=== PATIENT | female | born 1970 | race Caucasian/White ===

== ENCOUNTER 2020-07-13 15:51 | Outpatient (CLI) | payer OTHER, SELFPAY ==
--- NOTE | ~2020-07-13 | MM_ITS ---
EXAMINATION: MM screening [facility] BI w sugar HISTORY: Screening mammogram TECHNIQUE: Craniocaudal and mediolateral oblique 3-D tomosynthesis images were obtained and synthetic 2-D images were generated. CAD analysis was submitted and interpreted. COMPARISON: 05/23/2019, 05/21/2018, 05/14/2018, 05/17/1917 BREAST PARENCHYMAL COMPOSITION: The breasts are heterogeneously dense, which may obscure small masses . FINDINGS: There is no evidence of suspicious mass, calcification, or architectural distortion to sugg est malignancy in either breast. There has been no suspicious interval change. IMPRESSION: 1. No mammographic evidence of malignancy. 2. Recommend routine screening mammography in one year. BI-RADS Category 1: Negative Reviewed, dictated and finalized at location A. 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
== END 2020-07-13 15:52 | disposition home or self-care (01) ==
PROVIDERS: PCP Internal Medicine; Visit Provider Obstetrics & Gynecology
DX: Z12.31 Encounter for screening mammogram for malignant neoplasm of breast (principal)
CPT/HCPCS: 77063; 77067

== ENCOUNTER 2021-07-12 15:19 | Outpatient (CLI) | payer OTHER, SELFPAY ==
--- NOTE | ~2021-07-12 | MM_ITS ---
EXAMINATION: MM screening [facility] BI w sugar HISTORY: Screening mammogram TECHNIQUE: Craniocaudal and mediolateral oblique 3-D tomosynthesis images were obtained and synthetic 2-D images were generated. CAD analysis was submitted and interpreted. COMPARISON: 07/13/2020, 05/23/2019, 05/21/2018 BREAST PARENCHYMAL COMPOSITION: The breasts are heterogeneously dense, which may obscure small masses . FINDINGS: RIGHT BREAST: There is focal asymmetry in the posterior third of the upper inner breast 9 cm from the nipple. LEFT BREAST: There is no evidence of suspicious mass, calcification, or architectural distortion to s uggest malignancy. There has been no significant interval change. IMPRESSION: 1. Focal asymmetry of the right breast. 2. Additional mammographic views and possible breast ultrasound are recommended. BI-RADS Category 0: Incomplete: Needs additional imaging evaluation. Reviewed, dictated and finalized at location A. TRAINER TEACHER IMPRESSION: 1. Focal asymmetry of the right breast. 2. Additional mammographic views and possible breast ultrasound are recommended . BI-RADS Category 0: Incomplete: Needs additional imaging evaluation.
== END 2021-07-12 15:20 | disposition home or self-care (01) ==
LOC: ANHIMG 15:23
PROVIDERS: PCP Family Medicine; Visit Provider Obstetrics & Gynecology
DX: Z12.31 Encounter for screening mammogram for malignant neoplasm of breast (principal); R92.8 Other abnormal and inconclusive findings on diagnostic imaging of breast
CPT/HCPCS: 77063; 77067

== ENCOUNTER 2021-08-09 13:40 | Outpatient (CLI) | payer OTHER, SELFPAY ==
--- NOTE | ~2021-08-09 | MM_ITS ---
EXAMINATION: MM diagnostic [facility] RT w sugar HISTORY: Right breast asymmetry on screening mammogram TECHNIQUE: Additional 3-D tomosynthesis images of the right breast were performed and synthetic 2-D i mages were generated. CAD analysis was submitted and interpreted. COMPARISON: 07/12/2021, 07/13/2020, 05/23/2019 FINDINGS: There is a return to baseline fibroglandular appearance with spot compression of the right breast in the area questioned on screening mammogram. IMPRESSION: 1. No mammographic evidence of malignancy. 2. Recommend routine screening mammography in one year. BI-RADS Category 1: Negative Reviewed, dictated and finalized at location A. 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
== END 2021-08-09 13:41 | disposition home or self-care (01) ==
LOC: ANHIMG 13:41
PROVIDERS: PCP Family Medicine; Visit Provider Obstetrics & Gynecology
DX: R92.8 Other abnormal and inconclusive findings on diagnostic imaging of breast (principal)
CPT/HCPCS: 77061; 77065; G0279

== ENCOUNTER 2022-10-10 16:00 | Outpatient (CLI) | payer OTHER, SELFPAY ==
--- NOTE | ~2022-10-10 | MM_ITS ---
EXAMINATION: MM screening [facility] BI w sugar HISTORY: Screening mammogram TECHNIQUE: Craniocaudal and mediolateral oblique 3-D tomosynthesis images were obtained and synthetic 2-D images were generated. CAD analysis was submitted and interpreted. COMPARISON: 08/27/2021 diagnostic right mammogram 07/12/2021, 07/13/2020 bilateral screening mammogram examinations BREAST PARENCHYMAL COMPOSITION: There are scattered areas of fibroglandular density. FINDINGS: There is no evidence of suspicious mass, calcification, or architectural distortion to sugg est malignancy in either breast. There has been no suspicious interval change. IMPRESSION: 1. No mammographic evidence of malignancy. 2. Recommend routine screening mammography in one year. BI-RADS Category 1: Negative Reviewed, dictated and finalized at location A. CLEANER
== END 2022-10-10 16:01 | disposition home or self-care (01) ==
PROVIDERS: PCP Family Medicine; Visit Provider Obstetrics & Gynecology
DX: Z12.31 Encounter for screening mammogram for malignant neoplasm of breast (principal)
CPT/HCPCS: 77063; 77067

== ENCOUNTER 2023-11-01 14:43 | Outpatient (CLI) | payer OTHER, SELFPAY ==
--- NOTE | ~2023-11-01 | MM_ITS ---
EXAMINATION: MM screening [facility] BI w sugar HISTORY: Screening mammogram TECHNIQUE: Craniocaudal and mediolateral oblique 3-D tomosynthesis images were obtained and synthetic 2-D images were generated. CAD analysis was submitted and interpreted. COMPARISON: October 10, 2022 bilateral screening mammogram August 09, 2021 diagnostic right mammogram July 12, 2021 bilateral screening mammogram August 22, 2019 bilateral screening mammogram 05/14/2018, 05/26/2017 bilateral screening mammogram examinations BREAST PARENCHYMAL COMPOSITION: The breasts are heterogeneously dense, which may obscure small masses . FINDINGS: There is focal irregular asymmetry in the posterior inner right breast. Diagnostic right ma mmogram and right breast ultrasound examination are recommended. Otherwise no suspicious mass, architectural distortion, malignant calcification, skin thickening or r etraction of either breast is detected. IMPRESSION: 1. Focal irregular asymmetry in posterior inner right breast 2. Diagnostic right mammogram and right breast ultrasound examination are recommended. BI-RADS Category 0: Incomplete: Needs additional imaging evaluation. Reviewed, dictated and finalized at location A. INSULATOR IMPRESSION: 1. Focal irregular asymmetry in posterior inner right breast 2. Diagnostic right mammogram and right breast ultrasound examination are recom mended. BI-RADS Category 0: Incomplete: Needs additional imaging evaluation.
== END 2023-11-01 14:44 | disposition home or self-care (01) ==
LOC: ANHIMG 14:47
PROVIDERS: PCP Family Medicine; Visit Provider Obstetrics & Gynecology
DX: Z12.31 Encounter for screening mammogram for malignant neoplasm of breast (principal); R92.8 Other abnormal and inconclusive findings on diagnostic imaging of breast
CPT/HCPCS: 77063; 77067

== ENCOUNTER 2023-11-20 13:24 | Outpatient (CLI) | payer OTHER, SELFPAY ==
--- NOTE | ~2023-11-20 | MMUS_ITS ---
EXAMINATION: MM diagnostic [facility] RT w sugar, US breast RT complete HISTORY: Right mammographic asymmetry reported on 11/01/2023 screening mammogram TECHNIQUE: Additional 3-D tomosynthesis images of the right breast were performed and synthetic 2-D i mages were generated. CAD analysis was submitted and interpreted. High resolution complete right mitch st ultrasound examination coronal 4 quadrants and subareolar area was performed. COMPARISON: Serial mammogram examinations dating back to 05/26/2017 BREAST PARENCHYMAL COMPOSITION: There are scattered areas of fibroglandular density. FINDINGS: MAMMOGRAPHIC FINDINGS: Focal irregular density is again noted in the posterior inner right breast on craniocaudal view, appe aring stable compared to 05/26/2017. ULTRASOUND: No suspicious mass or shadowing is evident. IMPRESSION: 1. Probable benign fibroglandular asymmetry 2. 6 month follow-up diagnostic right mammogram is recommended, with ultrasound if required BI-RADS category 3, probably benign findings. Reviewed, dictated and finalized at location A. IMPRESSION: 1. Probable benign fibroglandular asymmetry 2. 6 month follow-up diagnostic right mammogram is recommended, with ultrasound if required BI-RADS category 3, probably benign findings.
== END 2023-11-20 13:25 | disposition home or self-care (01) ==
LOC: ANHIMG 13:25
PROVIDERS: PCP Family Medicine; Visit Provider Obstetrics & Gynecology
DX: R92.8 Other abnormal and inconclusive findings on diagnostic imaging of breast (principal)
CPT/HCPCS: 76641; 77061; 77065; G0279

== ENCOUNTER 2024-06-05 13:00 | Outpatient (CLI) | payer OTHER, SELFPAY ==
--- NOTE | ~2024-06-05 | MMUS_ITS ---
EXAMINATION: MM diagnostic [facility] RT w sugar, US breast RT complete HISTORY: Follow-up right breast asymmetries TECHNIQUE: Additional 3-D tomosynthesis images of the right breast were performed and synthetic 2-D i mages were generated. CAD analysis was submitted and interpreted. High resolution complete right mitch st ultrasound was performed. COMPARISON: Comparison to multiple prior studies sequentially, with oldest reviewed study dated 06/28. BREAST PARENCHYMAL COMPOSITION: Not dense: There are scattered areas of fibroglandular density. FINDINGS: MAMMOGRAPHIC FINDINGS: Right breast asymmetries are not significantly changed from prior examinations allowing for differenc es of technique. There are no suspicious calcifications. ULTRASOUND: Complete US of all 4 quadrants of the right breast/s and retroareolar region was reviewed. At 8:00, 7 cm from the nipple there is an oval hypoechoic mass with linear echogenic internal structure, possib ly an intramammary lymph node. This measures 8 mm. At 1:00, 5 cm from the nipple there is heterogeneo us echotexture with areas of decreased echogenicity. No discrete mass identified. This is best seen o n longitudinal images and is not well reproduced on transverse images. No significant associated abno rmal vascularity. IMPRESSION: 1. Probable benign findings of the right breast. 2. Recommend 6 month follow-up diagnostic bilateral mammogram and right breast Limited ultrasound BI-RADS category 3, probably benign findings. Reviewed, dictated and finalized at location B. IMPRESSION: 1. Probable benign findings of the right breast. 2. Recommend 6 month follow-up diagnostic bilateral mammogram and right breast Limited ultrasound BI-RADS category 3, probably benign findings.
== END 2024-06-05 13:01 | disposition home or self-care (01) ==
LOC: ANHIMG 13:03
PROVIDERS: PCP Family Medicine; Visit Provider Obstetrics & Gynecology
DX: R92.8 Other abnormal and inconclusive findings on diagnostic imaging of breast (principal)
CPT/HCPCS: 76641; 77061; 77065; G0279

== ENCOUNTER 2024-08-03 18:57 | Emergency (ER) | payer OTHER, SELFPAY ==
[2024-08-03 19:05] VITALS: BP 139/79; PULSE 81; RESP 18; TEMP 36.4; O2SAT 100
--- NOTE | 2024-08-03 19:12 | ED_ITS ---
HPI - General Adult General Chief complaint: Urogenital-Female Stated complaint: bladder infection signs Time Seen by Provider: 08/03/24 19:12 Source: patient Mode of arrival: ambulatory Limitations: no limitations History of Present Illness HPI narrative: 54-year-old female patient presents to the [facility] with multiple complaints. Patient states she has got some intermittent right lower abdominal pain, left pelvic pain and feels a lump, left lower back pain and concerned about her blood pressure. Patient saw her primary doctor and states that her primary doctor thought that maybe her ovaries were a little enlarged and she is scheduled to get an ultrasound on her ovaries on Monday she is also scheduled to get a left hip x-ray. She was also placed on Macrobid for a possible urinary tract or kidney infection. Patient denies any fevers, body aches or chills. Denies nausea vomiting diarrhea. Denies any chest pain or shortness of breath. Related Data Home Medications Medication Instructions Recorded Confirmed nitrofurantoin 08/03/24 08/03/24 monohydrate/macrocrystals 100 mg capsule Allergies Allergy/AdvReac Type Severity Reaction Status Date / Time codeine Allergy Unknown Rash Verified 08/03/24 19:15 Penicillins Allergy Unknown Skin Verified 07/04/19 08:31 Reaction poison kiran extract Allergy Unknown Unknown Verified 08/03/24 19:15 Sulfa (Sulfonamide Allergy Unknown Rash Verified 08/03/24 19:15 Antibiotics) sulfamethizole Allergy Unknown Rash Verified 08/03/24 19:15 sulfanilamide Allergy Unknown Rash Verified 08/03/24 19:15 trimethoprim Allergy Unknown Rash Verified 08/03/24 19:15 Review of Systems Review of Systems: CONSTITUTIONAL: Denies fever, chills, or sweats. EYES: Denies visual changes, redness, or discharge. ENT: Denies rhinorrhea, congestion, sore throat, or otalgia. CARDIOVASCULAR: Denies chest pain, palpitations, or edema. RESPIRATORY: Denies cough or dyspnea. GASTROINTESTINAL: Positive right lower abdominal pain, deniesnausea, vomiting, or diarrhea. positive left lower pelvic pain GENITOURINARY: Denies dysuria or hematuria. SKIN: Denies rash or itching. MUSCULOSKELETAL: positive left lower back pain, joint pain, or myalgia. NEUROLOGIC: Denies headache, numbness, or weakness. PSYCHIATRIC: Denies anxiety or depression. [facility] Family History Family History Mother Hypertension Family history of elevated blood lipids Family history of arthritis Family history of hypothyroidism Grandparent Family history of coronary artery disease Father Hypertension Other Family history of cardiovascular disease Social History Social History Smoking status: Never smoker Alcohol intake: never Comments At the time of my signature I agree with nursing past medical history, surgical, social, and family history. There is no relevant family history pertinent to the presenting complaint. Exam Narrative: GENERAL: Well-appearing, well-nourished, and in no acute distress. HEAD: Normocephalic, atraumatic. EYES: PERRLA and EOMI. ENT: Nares clear, no rhinorrhea or epistaxis. Mucous membranes moist. NECK: Supple. No lymphadenopathy CHEST: Clear to auscultation. No respiratory distress. HEART: Regular rate and rhythm. No murmur heard. Normal peripheral pulses. ABDOMEN: Soft, flat, nondistended. No guarding, rebound tenderness, or rigid. No pulsatilla masses. hyperactive Bowel sounds present in all four quadrants. No organomegaly. Negative Manzano?s sign. No periumbicial tenderness. No Supra public tenderness or distension. Good femoral pulses bilaterally. No hernia noted. No scars or surface trauma. there is a lump noted to the left pelvic area near the left ovary with tenderness on deep palpation. No CVA tenderness on percussion. EXTREMITIES: Normal range of motion. No edema. SKIN: Warm, dry, no rash. NEURO: No focal deficits. Alert and oriented x3. Course Course Level of Care: Express Care Visit Vital Signs Vital signs: Vital Signs Temperature 36.4 C L 08/03/24 19:05 Pulse Rate 81 08/03/24 19:05 Respiratory Rate 18 08/03/24 19:05 Blood Pressure 139/79 08/03/24 19:05 Pulse Oximetry 100 08/03/24 19:05 Oxygen Delivery Room Air 08/03/24 19:05 Temperature 36.4 C L 08/03/24 19:05 Pulse Rate 81 08/03/24 19:05 Respiratory Rate 18 08/03/24 19:05 Blood Pressure 139/79 08/03/24 19:05 Pulse Oximetry 100 08/03/24 19:05 Oxygen Delivery Room Air 08/03/24 19:05 Vital signs reviewed. The patient has been informed that they may have pre-hypertension or Hypertension based on a BP reading in the department. I recommend that the patient call the primary care provider listed on their discharge instructions or a physician of their choice this week to arrange follow up for further evaluation of possible pre-hypertension or Hypertension Medical Decision Making MDM Narrative Medical decision making narrative: Discussed with patient that I do not see any acute issue going on at this time. Discussed with patient I highly recommend that she finish the antibiotic she was given and get her ultrasound and x-ray as ordered on Monday. Discussed with patient continue to monitor her symptoms and if anything changes tomorrow she needs go the ER for further evaluation. Discussed with her that I do not see anything on her urine dip that would be concerning of kidney stones or an acute infection at this time however she has also been on antibiotics. Discussed with patient that her doctor's office did culture her urine and to wait for the culture to come back as well as get the other imaging is ordered. Patient verbalized understanding denies any other questions or concerns at this time. Differential Diagnosis Differential Diagnosis: Differential diagnosis: Uncomplicated lower UTI, uncomplicated UTI, pyelonephritis Vital Signs Vital Signs: Vital Signs Temperature 36.4 C L 08/03/24 19:05 Pulse Rate 81 08/03/24 19:05 Respiratory Rate 18 08/03/24 19:05 Blood Pressure 139/79 08/03/24 19:05 Pulse Oximetry 100 08/03/24 19:05 Oxygen Delivery Room Air 08/03/24 19:05 Temperature 36.4 C L 08/03/24 19:05 Pulse Rate 81 08/03/24 19:05 Respiratory Rate 18 08/03/24 19:05 Blood Pressure 139/79 08/03/24 19:05 Pulse Oximetry 100 08/03/24 19:05 Oxygen Delivery Room Air 08/03/24 19:05 Critical Care Time Critical Care Time Critical Care Time: No Discharge Plan Discharge Clinical Impression: Acute left flank pain, Arthralgia of left side of pelvis Patient Disposition: Home, Self-Care Condition: Stable Instructions: Antibiotic Form, Abdominal Pain (ED) Additional Instructions: No serious cause of abdominal pain is found at this time. It is important to carefully watch for changes in the abdominal pain that might suggest a serious condition. See your doctor or return to the emergency department immediately if your condition gets worse. These symptoms suggest serious causes of abdominal pain: Your unable to walk easily or walking in a bent over position. You are experiencing pain in the right lower part of her abdomen. Stepping or jumping results in severe pain. The abdomen is hard and painful when you press on it. There is severe abdominal pain when coughing. You are vomiting or gagging. Vomiting is bloody or green or looks like chocolate or coffee. The belly looks very full or basic. You're experiencing severe pain every 3-20 minutes. The stool is bloody or black. You are drowsy, weak, fussy, pale. Prescriptions: No Action nitrofurantoin monohyd/m-cryst 100 mg capsule Follow-up/Referrals: Hetal Cardenas MD [Primary Care Provider] - Time of Disposition: 19:36
--- NOTE | 2024-08-03 19:39 | PC.NURSE ---
NO UC ORDERED PER PROVIDER
== END 2024-08-03 19:40 | disposition home or self-care (01) ==
PROVIDERS: Emergency Provider Nurse Practitioner Family; PCP Family Medicine
DX: R10.32 Left lower quadrant pain (principal); R10.2 Pelvic and perineal pain
CPT/HCPCS: 99211; G0463

== ENCOUNTER 2024-08-05 14:55 | Outpatient (CLI) | payer OTHER, SELFPAY ==
--- NOTE | ~2024-08-05 | XR_ITS ---
AP and lateral views of the left hip Clinical history: Pain Findings: No acute fracture or dislocation is seen. Osseous alignment is anatomic. Left hip joint is intact. Soft tissues are unremarkable. Impression: No significant abnormality is seen. Reviewed, dictated and finalized at location M. 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
--- NOTE | ~2024-08-05 | US_ITS ---
Pelvic ultrasound. Clinical History: Pelvic pain Technique: Realtime transvaginal scanning of the pelvis was performed. Color flow Doppler and Doppler spectral analysis were performed. Findings: The uterus is anteverted. The endometrial stripe has a thickness of 3 mm. Posterior fundal fibroid measures 2.6 x 2.1 x 2.5 cm. The right ovary measures 2.1 x 0.9 x 1.3 cm. No significant right ovarian or adnexal mass is seen. The left ovary measures 1.5 x 0.9 x 1.3 cm. No significant left ovarian or adnexal mass is seen. There is no evidence of free fluid in the cul de sac. Impression: 2.6 cm uterine fibroid, as detailed above. Reviewed, dictated and finalized at location . UNICATIONS INTERN Impression: 2.6 cm uterine fibroid, as detailed above.
--- NOTE | ~2024-08-05 | US_ITS ---
Renal-Bladder ultrasound Clinical History: Pelvic pain, left flank pain Technique: Real-time sonographic imaging of the kidneys and urinary bladder was performed. Findings: The right kidney measures 9.3 cm in length and the left kidney measures 9.9 cm. There is no hydronephrosis or renal calculus identified. Renal cortical echogenicity is within normal limits. No renal mass lesion is identified. The urinary bladder is moderately distended at the time of this exam. No intraluminal echoes are iden tified. No abnormal wall thickening is seen. Impression: Unremarkable ultrasound of the kidneys and urinary bladder. Reviewed, dictated and finalized at location M. R AND RECOVERY SUPERINTENDENT Impression: Unremarkable ultrasound of the kidneys and urinary bladder.
== END 2024-08-05 14:56 | disposition home or self-care (01) ==
PROVIDERS: PCP Family Medicine; Visit Provider Obstetrics & Gynecology
DX: D25.9 Leiomyoma of uterus, unspecified (principal); M25.552 Pain in left hip
CPT/HCPCS: 73502; 76775; 76830

== ENCOUNTER 2024-08-22 14:26 | Outpatient (CLI) | payer OTHER, SELFPAY ==
--- NOTE | ~2024-08-22 | CT_ITS ---
EXAMINATION: CT abdomen pelvis w con DATE: 08/22/2024 15:30 INDICATION: Hernia TECHNIQUE: Computed tomography (CT) of the abdomen and pelvis was performed with 100 mL Omnipaque-350 intravenous contrast. Automated exposure control and iterative reconstruction technique were employe d. The dose-length product was 624.44 mGy-cm. COMPARISON: None FINDINGS: Calcified left lower lobe nodule along with calcified left hilar lymph nodes and a few small splenic calcific lesions, all consistent with old granulomatous disease. Size is normal. No pericardial or pl eural effusion. Liver, gallbladder, pancreas and bilateral adrenal glands are normal. There are bilat eral renal cysts the larger on the right measuring 1.2 cm. Bladder is normal. Bowels including the ap pendix are normal. 2.3 cm uterine fibroid. Small left inguinal hernia containing minimal amount of fa t and small amount of fluid. No other free intraperitoneal fluid or gas. No pathologically enlarged a bdominal or pelvic lymphadenopathy. Mild lumbar and moderate lower thoracic spondylosis with Schmorl' s nodes at a few levels in the lower thoracic spine. IMPRESSION: 1. Small left inguinal hernia containing minimal fat and small amount of fluid. Reviewed, dictated and finalized at location B. LOG LIBRARIAN
== END 2024-08-22 14:27 | disposition home or self-care (01) ==
PROVIDERS: PCP Family Medicine; Visit Provider Obstetrics & Gynecology
DX: K40.90 Unilateral inguinal hernia, without obstruction or gangrene, not specified as recurrent (principal); N28.9 Disorder of kidney and ureter, unspecified
CPT/HCPCS: 74177; Q9967

== ENCOUNTER 2024-11-04 13:49 | Outpatient (CLI) | payer OTHER, SELFPAY ==
--- NOTE | ~2024-11-04 | MR_ITS ---
EXAMINATION: MR pelvis wo/w con DATE: 11/04/2024 14:41 INDICATION: Left hip pain. TECHNIQUE: Magnetic resonance imaging (MRI) of the pelvis was performed without and with 10 mL ProHan ce intravenous contrast. COMPARISON: CT 08/22/2024 FINDINGS: There are no dilated loops of bowel. There is a left inguinal hernia containing fat and ascites. Ther e are no pathologically enlarged lymph nodes. Alignment is normal. No fracture. There is mild osteoar thritis of the hips. There is moderate tendinopathy of the hamstring origins bilaterally. IMPRESSION: 1. Left inguinal hernia containing fat and ascites. 2. Mild osteoarthritis of the hips. Reviewed, dictated and finalized at location B.
== END 2024-11-04 13:50 | disposition home or self-care (01) ==
LOC: MICIMG 13:51
PROVIDERS: PCP Family Medicine; Visit Provider Surgery
DX: M16.0 Bilateral primary osteoarthritis of hip (principal); K40.90 Unilateral inguinal hernia, without obstruction or gangrene, not specified as recurrent; R18.8 Other ascites; Z87.828 Personal history of other (healed) physical injury and trauma
CPT/HCPCS: 72197; A9579

== ENCOUNTER 2024-12-02 13:18 | Outpatient (CLI) | payer OTHER, SELFPAY ==
--- NOTE | ~2024-12-02 | MMUS_ITS ---
EXAMINATION: MM diagnostic aubree BI w sugar, US breast RT limited HISTORY: Follow-up right breast masses TECHNIQUE: Additional 3-D tomosynthesis images of the breasts were performed and synthetic 2-D images were generated. CAD analysis was submitted and interpreted. High resolution Limited right breast ult rasound was performed. COMPARISON: Comparison to multiple prior studies sequentially, with oldest reviewed study dated 06/28. BREAST PARENCHYMAL COMPOSITION: Not dense: There are scattered areas of fibroglandular density. FINDINGS: MAMMOGRAPHIC FINDINGS: The breasts are stable. No new masses, calcifications or architectural distortion in either breast to suggest malignancy. ULTRASOUND: Limited right breast ultrasound: No discrete mass identified at 1:00, 5 cm from the nipple. At 8:00, 7 cm from the nipple there is a stable septated cyst measuring 7 x 4 x 3 mm compared with 8 mm on linda or examination. No new masses. IMPRESSION: 1. No evidence for malignancy in the right breast. Benign septated 7 mm cyst present at 8:00, 7 cm fr om the nipple. 2. Routine yearly screening mammogram and regular clinical breast examination are recommended. BI-RADS Category 2: Benign finding(s). Reviewed, dictated and finalized at location A. IMPRESSION: 1. No evidence for malignancy in the right breast. Benign septated 7 mm cyst pr esent at 8:00, 7 cm from the nipple. 2. Routine yearly screening mammogram and regular clinical breast examination a re recommended. BI-RADS Category 2: Benign finding(s).
--- OUTSIDE RECORDS SUMMARY | 2024-12-02 15:11 | XMS_ITS ---
Author Organization [facility] Address [address] [place] [address] Care Team Providers Care Rehabilitator Name Role Phone Hetal Cardenas MD Primary Care Provider Unavail able Joshua Mcclain Unavailable [phone] REASON FOR VISIT Pt has Hernia/ Colon Encounters En[facility] Date [facility] [address] [place] [address] 09/06/2024 Joshua Mcclain Plan Of Treatment No Information Progress Notes * Beryl LINK LDOB: 9 (54 yo F)Acc No.[id number]:09/06/2024 Patient: Beryl PIERCE Eb :1970 A ge:54 Y S ex:Female Address:[address] [place] [address] * true * Date: Generated for Marquisi ng/Famaria eugeniag/eTransmitting on: 0 12/02/2024 03:11 PM CDT
--- OUTSIDE RECORDS SUMMARY | 2024-12-02 15:11 | XMS_ITS | Clinical Summary ---
Author Organization [facility] Address [address] [address] Phone Care Team Providers Care Business Information Analyst Name Role Phone Corwin Malone MD Primary Care Provider [phone]- [phone] Social History Tobacco Use Types Packs/Day Years Used Date Smoking Tobacco: Never Assessed Comments Unknown Sex and Gender Information Value Date Recorded Sex Assigned at Not on file Legal Sex Female 11:02 AM CDT Gender Identity Not on file Sexual Orientation Not on file Plan of Treatment Health Maintenance Due Date Last Done Comments Hepatitis C Virus (HCV) Screening 1970 TdaP Immunization 1970 Hepatitis B Immunization (1 of 3 - 19+ 3-dose series) 02/14/1988 Pap Smear 1990 Cervical Cancer Screening (CCS) 1999 HPV/Cotest 1999 Cologuard 2019 Immunochemical Fecal Occult Blood 2019 Mammogram 2019 Pneumococcal Immunization (5 0+ years) (1 of 1 - PCV) 2019 Zoster Immunization (1 of 2) 2019 Influenza Immunization (#1) 2024 SARS-COV-2 Immunization ( - 2023- season) 2024 Colonoscopy 05/23/2024 05/23/2019 Colorectal Cancer Screening 05/23/2024 Respiratory Syncytial Virus (RSV) Immunization (Adult) (1 - 1-dose 75+ series) 02/14/2044 05/23/2019 Meningococcal Immunization (ACWY) Aged Out No longer eligible based on patient's age to complete this topic Pneumococcal Immunization Combined Aged Out No longer eligible based on patient's age to complete this topic Rotavirus Immunization Aged Out No lo nger eligible based on patient's age to complete this topic Procedures Procedure Name Priority Date/Time Associated Diagnosis Comments COLONOSCOPY Routine 05/23/2019 from Last 3 Months or Most Recently Relevant to Health Maintenance Results * COLONOSCOPY (05/23/2019) Demetri Xiang Spain DO PROCEDURE/MINOR SURGICAL ORDERA BLES Final Result from Last 3 Months or Most Recently Relevant to Health Maintenance Insurance Care Teams Business Information Analyst Relationship Specialty Start Date End Date Corwin Malone MD [address] [place] [address] PCP - General Obstetrics & Gynecology 05/03/19
--- OUTSIDE RECORDS SUMMARY | 2024-12-02 15:11 | XMS_ITS ---
Author Organization [employer] Address [address] [place] [address] Care Team Providers Care Lead Mechanical Engineer Name Role Phone Hetal Cardenas MD Primary Care Provider Unavail able Joshua Mcclain Unavailable [phone] REASON FOR VISIT Screen, hx of colon polyps 5 4 150 Medications Medication SIG (Take, Route, Frequency, Duration) Notes Start Date End Date Status Na Sulfate-K Sulfate-Mg Sulf 17.5-3.13-1.6 GM/177ML ML Orally Twice a day,Follow Physician Instructions. for 1 days 07/09/2024 Active Problems Problem Type SNOMED Code ICD Code Onset Dates Problem Status W/U Status Risk Notes Problem Colon cancer screening (814332740) Colon cancer screening (Z12.11) Active confirmed Problem Personal history of adenomatous and serrated colon polyps (Z86.0101) Active confirmed Problem Benign neoplasm of colon (11767025) Benign colon polyp (K63.5) Active confirmed Encounters Encounter Location Date Provider Diagnosis [facility] [address] [place] [address] 09/26/2024 Joshua Mcclain Colon cancer screening Z12.11 ; Personal history of adenomatous and serrated colon polyps Z86.0101 and Benign colon polyp K63.5 Assessments Encounter Date Diagnosis (ICD Code) Assessment Notes Treatment Notes Treatment Clinical Notes Section Notes 09/26/2024 Colon cancer screening (ICD-10 - Z12.11) 09/26/2024 Personal history of adenomatous and serrated colon polyps (ICD-10 - Z86.0101) 09/26/2024 Benign colon polyp (ICD-10 - K63.5) Plan Of Treatment Next Appt Details Follow Up: Colonoscopy 5 yea r, Reason: Progress Notes * Beryl LINK LDOB: [birth year] (54 yo F)Acc No.[id number]:09/26/2024 Patient: Beryl PIERCE Provider: Mohsen Mcclain M.D. :1970 A ge:54 Y S ex:Female Date:09/26/2024 Address:[address] [place] [address] Pcp:Hetal Cardenas MD Subjective: * Chief Complaints: * S creen, hx of colon polyps 5 4 150 * Medical History: * Surgical History: * Hospitalization/Major Diagno stic Procedure: * Medications: T akingNa Sulfate-K Sulfate-Mg Sulf 17.5-3.13-1.6 GM/177ML Solution ML Orally Twice a day,Follow Physician Instructions. Taking Na Sulfate-K Sulfate-Mg Sulf 17.5-3.13-1.6 GM/177ML Solution ML Orally Twice a day,Follow Physician Instructions. Objective: * Vitals: Assessment: * Assessment: 1. C olon cancer screening - Z12.11 (Primary) 2 . P ersonal history of adenomatous and serrated colon polyps - Z86.0101 3 . B enign colon polyp - K63.5? Plan: * Treatment: * Procedure Codes: 4 5385 LESION REMOVAL COLONOSCOPY, Modifiers: 33 * Follow Up: C olonoscopy 5 year * Images: * OPERATOR Sign off status: Completed true * Provider: Moshen Mcclain M.D. Date: 0 09/26/2024 Generated for Cornelia pringle/Clare/Shanitaitting on: 0 12/02/2024 03:11 PM CDT
--- OUTSIDE RECORDS SUMMARY | 2024-12-02 15:11 | XMS_ITS | Clinical Summary ---
Author Organization [facility] Address [facility] [place] [address] Care Team Providers Care E Commerce Director Name Role Phone Hitesh Massey DO Primary Care Provider [phone] Allergies Active Allergy Reactions Criticality Noted Date Comments Codeine Other (see comment) 07/30/2019 anxious Sulfa Antibiotics Rash Low 07/30/2019 Medications cetirizine 10 MG tablet Take 10 mg by mouth daily. Active fluticasone propionate 50 MCG/ACT nasal spray by Nasal route daily. Active predniSONE 10 mg tabletIndicatio ns:Irritant contact dermatitis due to plants, except food 4 tablets daily x 3 days, then 3 tablets daily x 3 days, then 2 tablets daily x 3 days, then 1 tablet daily x 3 days, then stop. 30 tablet 07/30/2019 Active Social History Tobacco Use Types Packs/Day Years Used Date Smoking Tobacco: Never Smokeless Tobacco: Current Comments No Sex and Gender Information Value Date Recorded Sex Assigned at Not on file Legal Sex Female 4:06 PM CDT Gender Identity Not on file Sexual Orientation Not on file Last Filed Vital Signs Vital Sign Reading Time Taken Comments Blood Pressure 112/62 07/30/2019 4:06 PM ELECTROPLATER Pulse 72 07/30/2019 4:06 PM ELECTROPLATER Temperature 37.3 C (99.2 F) 07/30/2019 4:06 PM ELECTROPLATER Respiratory Rate 16 07/30/2019 4:06 PM ELECTROPLATER Oxygen Saturation 98% 07/30/2019 4:06 PM ELECTROPLATER Inhaled Oxygen Concentration - - Weight 72.1 kg (159 lb) 07/30/2019 4:06 PM ELECTROPLATER Height 162.6 cm (5' 4 ) 07/30/2019 4:06 PM ELECTROPLATER Body Mass Index 27.29 07/30/2019 4:06 PM ELECTROPLATER Plan of Treatment Health Maintenance Due Date Last Done Comments Cervical Cancer Screening Pa p Smear (Age 30 to 64) Every 3 Years 1969 Colorectal Cancer Screening Colonoscopy (10 Years) 1969 Annual Physical 02/14/1972 Hepatitis C 1987 DTaP, Tdap and Td Vaccines ( 1 - Tdap) 02/14/1988 Hepatitis B Vaccines (1 of 3 - 19+ 3-dose series) 02/14/1988 Cervical Cancer Screening Pa p with HPV Testing (Age 30 to 64) Every 5 Years 1999 Cervical Cancer Screening with HPV 1999 Mammogram Screening 2009 Zoster Vaccines (1 of 2) 2019 COVID-19 Vaccine (2023-2 5 season) 2024 Meningococcal B Vaccine Aged Out No l onger eligible based on patient's age to complete this topic Meningococcal Vaccine Aged Out No nikki angel eligible based on patient's age to complete this topic Pneumococcal Vaccine: Pediat rics (0 to 5 Years) and At-Risk Patients (6 to 64 Years) Aged Out No longer eligible b ased on patient's age to complete this topic RSV Immunizations Under 20 Months Aged Out No longer eligible based on patient's age to complete this topic Insurance [employer] OPEN ACCESS [facility] Care Teams E Commerce Director Relationship Specialty Start Date End Date Hitesh Massey DO [address] [address] PCP - General INTERNAL MEDICINE 07/30/19
--- OUTSIDE RECORDS SUMMARY | 2024-12-02 15:12 | XMS_ITS | Clinical Summary ---
Author Organization [facility] Address [address] [place] [address] Care Team Providers Care Mail Censor Name Role Phone Holland Muhammad MD Primary Care Provider [phone] Source Comments [facility] [employer],non-owned Affiliates and Associated Physician Practices is amultiple site organization consisting of ambulatory clinics and hospital sitesin [place], [place], [place] and [place]. This disclosure is being madepursuant to the Care Everywhere program and may not contain all information available regarding this patient. Last updated 18.[facility] [employer] Immunizations Name Administration Dates Next Due INFLUENZA VACCINE, QUADR. (F LUZONE; FLULAVAL; FLUARIX; AFLURIA QUADRIVALENT; 6MO+), 0.5 ML (IIV4) 06/09/2017 Social History Tobacco Use Types Packs/Day Years Used Date Smoking Tobacco: Never Assessed Sex and Gender Information Value Date Recorded Sex Assigned at Not on file Gender Identity Not on file Sexual Orientation Not on file Plan of Treatment Health Maintenance Due Date Last Done Comments COLOGUARD (AGES 45-75) - COL ON CA SCREENING 1969 COLON MONITORING 1969 COLONOSCOPY - COLON CA SCREENING 1969 CT COLONOGRAPHY - COLON CA SCREENING 1969 Colorectal Cancer Screening 1969 FIT - COLON CA SCREENING 1969 FLEX SIG - COLON CA SCREENING 1969 LIPID TESTING 1969 MAMMOGRAM 1969 PAP SMEAR 1969 HIV SCREENING 02/14/1984 HEPATITIS C SCREENING 02/09/1987 DTAP/TDAP/TD VACCINES (1 - Tdap) 02/14/1988 HEPATITIS B VACCINE (1 of 3 - 19+ 3-dose series) 02/14/1988 PNEUMOCOCCAL VACCINE 50+ (1 of 1 - PCV) 2019 ZOSTER VACCINE (1 of 2) 2019 COVID-19 VACCINE (2023-2 5 season) 2024 DEPRESSION SCREENING 08/28/2024 INFLUENZA VACCINE (Season Ended) 2025 06/09/20 17 HIB VACCINE Aged Out No longer eligi ble based on patient's age to complete this topic HPV VACCINE Aged Out No longer eligi ble based on patient's age to complete this topic MENINGOCOCCAL (Group B) VACC INE SHARED DECISION-MAKING Aged Out No longer eligibl e based on patient's age to complete this topic MENINGOCOCCAL GROUPS A/C/Y/W VACCINE Aged Out No longer eligible b ased on patient's age to complete this topic PNEUMOCOCCAL VACCINE Aged Out No long er eligible based on patient's age to complete this topic Care Teams Mail Censor Relationship Specialty Start Date End Date Holland Muhammad MD [address] [place] [address] PCP - General Internal Medicine 06/09/17
--- OUTSIDE RECORDS SUMMARY | 2024-12-02 15:12 | XMS_ITS ---
Author Organization [employer], [facility] Address [address] [place] [address] [address] [place] [address] Care Team Providers Care Filter Press Tender Head Name Role Phone Hetal Cardenas MD Primary Care Provider Unavail able Joshua Mcclain Unavailable [phone] REASON FOR VISIT 09/26 Suprep generic Medications Medication SIG (Take, Route, Frequency, Duration) Notes Start Date End Date Status Na Sulfate-K Sulfate-Mg Sulf 17.5-3.13-1.6 GM/177ML ML Orally Twice a day,Follow Physician Instructions. for 1 days 07/09/2024 Active Encounters Encounter Location Date Provider [facility], [address] [place] [address] 05/23/2024 Joshua Mcclain Plan Of Treatment Medication Medication Name Sig Start Date Stop Date Notes Na Sulfate-K Sulfate-Mg Sulf 17.5-3.13-1.6 GM/177ML ML Orally Twice a day,Follow Physician Instructions. for 1 days 07/09/2024 Progress Notes * Beryl LINK LDOB: 9 (54 yo F)Acc No.[id number]:05/23/2024 Patient: Beryl Chau Eb :1970 A ge:54 Y S ex:Female Address:[address] [place] [address] , [place] [address] * Refills Start Na Sulfate-K Sulfate-Mg Sulf Solution, 17.5-3.13-1.6 GM/177ML, Orally, 1 Kit, ML, Twice a day,Follow Physician Instructions., 1 days, Refills=0 * true * Date: Generated for Cornelia pringle/Clare/Julianna on: 0 12/02/2024 03:11 PM CDT
--- OUTSIDE RECORDS SUMMARY | 2024-12-02 15:12 | XMS_ITS | Patient Health Record ---
Author Organization [employer] Address [address] [place] [address] Care Team Providers Care Teacher Home Therapy Name Role Phone Hetal Cardenas MD Primary Care Provider Unavail able Mcclain Joshua Unavailable [phone] Results Component Value Reference Range Notes Pathology Report Reviewed date:10/11/2024 12:37:18 PM Interpretation: Performing Lab: Notes/Report: DIAGNOSES A. Cecum Polyp, Polypectomy: -Polypoid portion of benign colonic mucosa, negative for adenoma. B. Rectum Polyp, Polypectomy: -Hyperplastic polyp. CLINICAL HISTORY High risk screening for colorectal malignant neoplasm due to personal history of colonic polyps. Two 4 to 6 mm polyps in the rectum and in the cecum. GROSSING DESCRIPTION A. The specimen is received in a Formalin-filled container labeled with the patient's name and designated Cecum Polyp It contains 1 fragment of ferguson tissue that measures 11x5x1 mm - trisected. The specimen was entirely submitted into a single cassette for processing. B. The specimen is received in a Formalin-filled container labeled with the patient's name and designated Rectum Polyp It contains 1 fragment of ferguson tissue that measures 16x5x1 mm - serially sectioned. The specimen was entirely submitted into a single cassette for processing. MICROSCOPIC DESCRIPTION Complete 100 microscopic examination is performed. The findings are included in the diagnosis rendered. Specimens A and B were evaluated with H&E stain. Textual Pathology Report SEE NOTES Reason For Referral No Information Medications Medication SIG (Take, Route, Frequency, Duration) Notes Start Date End Date Status Na Sulfate-K Sulfate-Mg Sulf 17.5-3.13-1.6 GM/177ML ML Orally Twice a day,Follow Physician Instructions. for 1 days 07/09/2024 Active Problems Problem Type SNOMED Code ICD Code Onset Dates Problem Status W/U Status Risk Notes Problem Colon cancer screening (680127888) Colon cancer screening (Z12.11) Active confirmed Problem Benign neoplasm of colon (42647413) Benign colon polyp (K63.5) Active confirmed Problem Personal history of adenomatous and serrated colon polyps (Z86.0101) Active confirmed Encounters Encounter Location Date Provider Diagnosis [facility] [address] [place] [address] 09/26/2024 Joshua Mcclain Colon cancer screening Z12.11 ; Personal history of adenomatous and serrated colon polyps Z86.0101 and Benign colon polyp K63.5 [facility], [facility] [address] [place] [address] 05/23/2024 [facility] [address] [place] [address] 09/06/2024 Joshua Mcclain Assessments Encounter Date Diagnosis (ICD Code) Assessment Notes Treatment Notes Treatment Clinical Notes Section Notes 09/26/2024 Colon cancer screening (ICD-10 - Z12.11) 09/26/2024 Personal history of adenomatous and serrated colon polyps (ICD-10 - Z86.0101) 09/26/2024 Benign colon polyp (ICD-10 - K63.5) Plan Of Treatment No Information Insurance Providers Payer Name Payer Address Payer Phone Subscriber Number Group Number Insured Name Patient Relationship to Insured Coverage Start Date Coverage End Date [employer] Pos II [id number] [address] [place] [address] [id number] Girish Link Spouse - patient is the spouse of the insured
--- OUTSIDE RECORDS SUMMARY | 2024-12-02 15:12 | XMS_ITS | Continuity of Care Document ---
Author Organization [facility] Address [address] [place] [address] Phone Care Team Providers Care Jacket Preparer Name Role Phone Obi Babb Unavailable Unavailable Procedures Procedure Date Office/outpatient Visit, [facility] Advance Directives Directive Yes / No Effective Date File Name No Information Encounters Encounter Description Practice Location Reason(s) For Visit Diagnoses Date Provider Providers Copied on Encounter Office/outpat ient Visit, [facility], [address], [place], [place], [id number], [place] tel:[phone] [facility] No Information [phone] [facility] [address], [place], [address], [place]. tel:[phone] Family History Family Member Type Diagnosis Age At Onset No Information Payers Payer name Insurance type Covered libertarian ID Authoriza tion(s) No Information Social History Type Description Quantity Date Captured Comments Sex Female Smoking Status No Information Chief Complaint And Reason For Visit No Information Reason For Referral Reason For Referral No Information History Of Present Illness Encounter Date Complaint History Of Prese nt Illness No Information Functional Status Date Functional Assessmen t No Information Instructions Date Instruction Additional Infor mation No Information Assessments Type Assessment Date No Information Patient Care Teams Name Effective Dates (start - stop) Status Members No Information
== END 2024-12-02 13:19 | disposition home or self-care (01) ==
LOC: ANHIMG 13:20
PROVIDERS: PCP Family Medicine; Visit Provider Obstetrics & Gynecology
DX: R92.8 Other abnormal and inconclusive findings on diagnostic imaging of breast (principal)
CPT/HCPCS: 76642; 77062; 77066; G0279

== ENCOUNTER 2025-03-22 07:30 | Outpatient (CLI) | payer OTHER, SELFPAY ==
--- NOTE | ~2025-03-22 | US_ITS ---
EXAMINATION: US aorta DATE: 03/24/2025 16:46 CDT INDICATION: Family history of abdominal aortic aneurysm TECHNIQUE: Grayscale, color Doppler, and pulsed Doppler images of the aorta and common iliac arteries were obtained. COMPARISON: None. FINDINGS: The proximal aorta measures 2.7 cm greatest sagittal dimension. The mid aorta measures 1.9 cm greates t sagittal dimension. The distal aorta measures 1.8 cm greatest sagittal dimension. The right common internal iliac artery measures 1 cm. The left common iliac artery measures 1 cm. IMPRESSION: 1. Normal caliber aorta without aneurysm. Reviewed, dictated and finalized at location B.
== END 2025-03-22 07:31 | disposition home or self-care (01) ==
LOC: MICIMG 07:30
PROVIDERS: PCP Family Medicine; Visit Provider Family Medicine
DX: Z13.6 Encounter for screening for cardiovascular disorders (principal); Z82.49 Family history of ischemic heart disease and other diseases of the circulatory system
CPT/HCPCS: 76775